=== PATIENT | female | born 1955 | race Caucasian/White ===

== ENCOUNTER 2016-06-03 13:59 | Emergency (ER) | payer BC ==
[~2016-06-03] VITALS: Ht 165.1 cm; Wt 50.7 kg
[2016-06-03 19:00] LABS: HEMATOCRIT 43.9 % (36.0-46.0); MCH 30.2 PG (29.0-34.0); MCHC 35.5 G/DL (30.0-36.0); MCV 85.1 FL (83-99); MEAN PLAT.VOLUME 10.7 uM^3 (9.5-12.4); PLATELET COUNT 157 K/uL (156-360); RBC DIS.WIDTH-CV 12.2 % (11.8-14.6); RBC DIS.WIDTH-SD 36.8 % (39-53); RED BLOOD COUNT 5.16 M/uL (3.80-5.20)
[2016-06-03 19:09] LABS: CHLORIDE 104 mEq/L (99-109); SODIUM 142 mEq/L (136-147)
[2016-06-03 19:11] LABS: GLUCOSE 86 mg/dL (70-99)
[2016-06-03 19:12] LABS: ANION GAP 12 MEQ/L (2-14)
[2016-06-03 19:15] LABS: GFR ESTIMATE (CALCULATED) > 59 mL/min/; UREA NITROGEN (BUN) 11 mg/dL (9-23)
[2016-06-03] MEDS ORDERED: ULTRAM50 MG PO (21:12)
[2016-06-03 21:54] VITALS: BP 136/82
== END 2016-06-03 21:57 | disposition home or self-care (01) ==
LOC: EME 13:59
PROVIDERS: Nurse Practitioner Family
DX: S29.012A Strain of muscle and tendon of back wall of thorax, initial encounter (principal); W10.8XXA Fall (on) (from) other stairs and steps, initial encounter; Y92.008 Other place in unspecified non-institutional (private) residence as the place of occurrence of the external cause; M25.562 Pain in left knee; M54.2 Cervicalgia; M25.511 Pain in right shoulder; M25.512 Pain in left shoulder; R07.81 Pleurodynia; M25.552 Pain in left hip; M79.674 Pain in right toe(s); M79.675 Pain in left toe(s); R51 Headache; R10.9 Unspecified abdominal pain
CPT/HCPCS: 70450; 71260; 73030; 73502; 73630; 74177; 80048; 85027; 99281; 99284